=== PATIENT | female | born 1955 | race Caucasian/White ===

== ENCOUNTER 2023-10-24 08:19 | Emergency (ER) | payer MEDICARE ==
[2023-10-24 08:26] VITALS: RESP 20; TEMP 97.1; O2SAT 99
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
[2023-10-24 09:29] VITALS: BP 173/80; PULSE 88
--- NOTE | 2023-10-24 09:30 | XRAY ---
Indication: Pain. Comparison: None 2 view right ribs demonstrate osteopenia, mild AC degenerative changes, mild degenerative changes visualized thoracolumbar spine, mild lumbar dextrorotoscoliosis centered at L3, and surgical clips projecting over L4-L5. No other bony, articular, or soft tissue abnormalities.
== END 2023-10-24 09:43 | disposition left against medical advice (07) ==
LOC: ED 08:19
DX: R07.9 Chest pain, unspecified (principal); R07.81 Pleurodynia; R55 Syncope and collapse; Z79.899 Other long term (current) drug therapy
CPT/HCPCS: 71100; 99283